=== PATIENT | male | born 1985 ===

== ENCOUNTER → 2020-12-26 | Outpatient (CLI) | payer OTHER ==
--- NOTE | 2020-12-26 15:17 | KCIC ---
CT scan of the head without contrast 12/26/2020 Clinical History: Palpable lump superior to the right orbit. Technique: Unenhanced, contiguous, 4.8 mm axial sections were obtained through the head. One or more of the following individualized dose reduction techniques were utilized for this study: 1. Automated exposure control. 2. Adjustment of the mA and/or kV according to patient size. 3. Use of iterative reconstruction technique. Findings: No previous studies are available for comparison. The ventricles and sulci are within normal limits in size and configuration. No area of abnormal atte nuation is seen involving the brain parenchyma. No extra-axial fluid collection is seen. A marker was placed in the area where the patient feels a lump superior to the right orbit. A somewha t oval-shaped area is seen which expands the inferior right frontal bone. This measures approximately 1.5 cm in greatest diameter. The underlying marrow is slightly heterogeneous. A small component exte nds anteriorly from the cortex which measures 6 mm in size. This is in the area where the patient fee ls a palpable abnormality. 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 A 6 month follow-up MRI is recommended to document its stability. No additional lesion is seen. IMPRESSION: A somewhat oval-shaped lesion is seen involving the inferior right frontal bone which cor responds to the patient's palpable abnormality. 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 A fo llow-up MRI of the brain in 6 months is recommended to document its stability. Electronically signed by: Paco Armando MD (12/26/2020 3:14 PM) [id number]
== END ==
LOC: KCIC CT 08:37
PROVIDERS: ATTEND Nurse Practitioner Gerontology
DX: R22.0 Localized swelling, mass and lump, head (principal)
CPT/HCPCS: 70450